=== PATIENT | male | born 1930 | race Caucasian/White ===

== ENCOUNTER 2017-09-11 13:58 | Emergency (ER) | payer MEDICARE, BC ==
[~2017-09-11] VITALS: Ht 177.8 cm; Wt 72.7 kg
[~2017-09-11 13:58] MED LIST: ASPIRIN 32325 MG/TA1 PO; ASPIRIN 32325 MG/TAB PO; CALCIUM 500 + D1 TA1 PO; CARDI-OMEGA1000 MG PO; CHOLESTEROL MA600 MG PO; FLEXERIL 1010 MG/TAB PO; LEVAQUIN 750MG750 M1 PO; MULTIPLE VITAMI1 CAP PO; NEURONTIN800 MG PO; PERCOCET 325 MG1 TA2 PO; VITAMIN E; VITAMIN E 400 U4001 PO; VITAMIN E1000 U/CAP PO
[2017-09-11 14:05] VITALS: BP 141/79; TEMP 98
[2017-09-11] MEDS ORDERED: MULTIPLE VITAMI1 CAP PO (15:52)
[2017-09-11] MEDS ORDERED: KRILL OIL 1,001 EAC1 PO (15:54)
[2017-09-11 16:32] VITALS: PULSE 90
== END 2017-09-11 16:31 | disposition home or self-care (01) ==
LOC: COL.ER 13:58
DX: S39.92XA Unspecified injury of lower back, initial encounter (principal); M54.5 Low back pain; Z98.890 Other specified postprocedural states; Z79.82 Long term (current) use of aspirin

== ENCOUNTER 2018-07-22 14:28 | Outpatient (CLI) | payer MEDICARE, BC ==
[~2018-07-22] VITALS: Ht 177.8 cm; Wt 71.0 kg
[~2018-07-22 14:28] MED LIST changes: +KRILL OIL 1,001 EAC1 PO
[2018-07-22 15:15] VITALS: BP 129/80; PULSE 88; TEMP 97.8
== END 2018-07-22 18:00 | disposition home or self-care (01) ==
LOC: EUO 14:28
DX: M81.0 Age-related osteoporosis without current pathological fracture (principal)
CPT/HCPCS: J0897

== ENCOUNTER 2019-02-23 09:32 | Outpatient (CLI) | payer MEDICARE, BC ==
[~2019-02-23] VITALS: Ht 177.8 cm; Wt 69.0 kg
[~2019-02-23 09:32] MED LIST changes: -CHOLESTEROL MA600 MG PO; -KRILL OIL 1,001 EAC1 PO; +KRILL OIL 3001 EACH PO; +MASON NATURAL600 MG PO; -NEURONTIN800 MG PO; +NEURONTIN800 MG/TAB PO
[2019-02-23 10:47] VITALS: BP 133/89; PULSE 89; TEMP 98.3
== END 2019-02-23 10:51 | disposition home or self-care (01) ==
LOC: EUO 09:32
DX: M81.0 Age-related osteoporosis without current pathological fracture (principal)
CPT/HCPCS: J0897

== ENCOUNTER 2019-03-19 09:28 | Emergency (ER) | payer MEDICARE, BC ==
[~2019-03-19] VITALS: Ht 170.2 cm; Wt 72.7 kg
[2019-03-19 09:58] VITALS: BP 148/88; TEMP 97.9
[2019-03-19] MEDS ORDERED: MASON NATURAL500 MG PO (11:12)
[2019-03-19] MEDS ORDERED: FLEXERIL 1010 MG/TAB PO (11:33)
[2019-03-19 11:46] VITALS: PULSE 85
== END 2019-03-19 11:47 | disposition home or self-care (01) ==
LOC: COL.ER 09:28
DX: S46.911A Strain of unspecified muscle, fascia and tendon at shoulder and upper arm level, right arm, initial encounter (principal); Z79.82 Long term (current) use of aspirin; Z87.891 Personal history of nicotine dependence; X50.0XXA Overexertion from strenuous movement or load, initial encounter; Y92.009 Unspecified place in unspecified non-institutional (private) residence as the place of occurrence of the external cause

== ENCOUNTER 2019-09-24 15:51 | Outpatient (CLI) | payer MEDICARE, BC ==
[~2019-09-24] VITALS: Ht 170.2 cm; Wt 68.6 kg
[~2019-09-24 15:51] MED LIST changes: +MASON NATURAL500 MG PO
[2019-09-24 17:39] VITALS: BP 115/91; PULSE 92; TEMP 98.4
== END 2019-09-24 16:45 | disposition home or self-care (01) ==
LOC: EUO 15:51
DX: M81.0 Age-related osteoporosis without current pathological fracture (principal)
CPT/HCPCS: J0897

== ENCOUNTER 2020-04-14 14:47 | Outpatient (CLI) | payer MEDICARE, BC ==
[2020-04-14 15:50] VITALS: BP 158/63; PULSE 73; TEMP 98.3
== END 2020-04-14 19:45 | disposition home or self-care (01) ==
LOC: EUO
DX: M81.0 Age-related osteoporosis without current pathological fracture (principal); Z79.899 Other long term (current) drug therapy
CPT/HCPCS: J0897

== ENCOUNTER 2020-10-19 10:18 | Outpatient (CLI) | payer MEDICARE, BC ==
[~2020-10-19] VITALS: Ht 170.2 cm; Wt 68.4 kg
[2020-10-19 11:56] VITALS: BP 143/79; PULSE 79; TEMP 98.6
== END 2020-10-19 12:03 | disposition home or self-care (01) ==
LOC: EUO 10:18
DX: M81.0 Age-related osteoporosis without current pathological fracture (principal)
CPT/HCPCS: J0897